=== PATIENT | male | born 1955 ===

== ENCOUNTER → 2024-02-03 11:59 | Outpatient (REF) | payer OTHER, SELFPAY ==
[2024-02-03 12:41] LABS: % Basophils 1.3 % (0-2); % Eosinophils 4.4 % (0-6); % Immature Granulocytes 1.5 % (0-0.5); % Lymphocytes 21.5 % (20.5-51.1); % Monocytes 9.7 % (1.7-9.3); % Neutrophils 61.6 % (42.2-75.2); Absolute Basophils 0.1 10^3/uL (0-0.2); Absolute Eosinophils 0.3 10^3/uL (0-0.7); Absolute Immature Granulocytes 0.1 10^3/uL (0-0.05); Absolute Lymphocytes 1.5 10^3/uL (1.2-3.4); Absolute Monocytes 0.7 10^3/uL (0.1-0.6); Absolute Neutrophils 4.2 10^3/uL (1.4-6.5); Hematocrit 31.5 % (39.0-52.0); Hemoglobin 10.6 g/dL (13.0-18.0); Mean Corp Hgb Conc. 33.7 g/dL (33.0-37.0); Mean Corpuscular Hgb 33.2 pg (27.0-31.0); Mean Corpuscular Volume 98.7 fL (80.0-94.0); Mean Platelet Volume 9.2 fL (7.4-10.4); Nucleated Red Blood Cells % 0 % (-); Platelet Count 247 10^3/uL (130-400); Red Blood Cell Count 3.19 10^6/uL (4.70-6.10); Red Cell Dist. Width 13.2 % (11.5-14.5); White Blood Cell Count 6.9 10^3/uL (4.8-10.8)
[2024-02-03 13:07] LABS: ALT (SGPT) 14 U/L (0-50); AST (SGOT) 23 U/L (17-59); Albumin 3.3 g/dl (3.5-5.0); Alkaline Phosphatase 69 U/L (38-126); Blood Urea Nitrogen 18 mg/dl (9-20); Calcium 8.4 mg/dl (8.4-10.2); Carbon Dioxide 32 mmol/L (22-30); Chloride 98 mmol/L (98-107); Glucose 93 mg/dl (70-99); Sodium 132 mmol/L (135-145); Total Bilirubin 0.6 mg/dl (0.2-1.3); Total Protein 6.9 g/dl (6.3-8.2); eGFR > 60.00
[2024-02-03 13:13] LABS: Potassium 3.8 mmol/L (3.5-5.1)
[2024-02-03 13:37] LABS: TSH 0.55 uIU/ml (0.47-4.68)
== END ==
LOC: OLABN 11:59
PROVIDERS: ATTENDING PHYSICIAN Student in an Organized Health Care Education/Training Program
DX: Z13.0 Encounter for screening for diseases of the blood and blood-forming organs and certain disorders involving the immune mechanism (principal); Z13.228 Encounter for screening for other metabolic disorders; E61.2 Magnesium deficiency; Z13.29 Encounter for screening for other suspected endocrine disorder
CPT/HCPCS: 36415; 80053; 83735; 84443; 85025

== ENCOUNTER → 2024-02-04 10:00 | Outpatient (REF) | payer OTHER, SELFPAY ==
[2024-02-07 13:05] LABS: 24 Hour Urine Total Volume 1250 mL; Total Protein, Urine 3132 mg/d (<=150); Ur Free Lambda Excretion/day 2898.41 mg/d; Urine Collection Length 24 hr; Urine Free Kappa Excretion/Day 105.11 mg/d; Urine Free Kappa Light Chains 84.09 mg/L (0.00-32.90); Urine Free Lambda Light Chains 2318.73 mg/L (0.00-3.79)
== END ==
LOC: OLABN 10:00
PROVIDERS: ATTENDING PHYSICIAN Student in an Organized Health Care Education/Training Program
DX: C30.0 Malignant neoplasm of nasal cavity (principal)
CPT/HCPCS: 36415; 81050; 83521; 84156; 86335